=== PATIENT | male | born 1955 | race Caucasian/White ===

== ENCOUNTER 2016-12-23 09:21 | Emergency (ER) | payer OTHER ==
[~2016-12-23] VITALS: Ht 170.2 cm; Wt 70.0 kg
[~2016-12-23 09:21] MED LIST: LEXAPRO20 MG OR; PREVNAR 13 IM; ZOSTAVAX IM; ZYRTEC10 MG PO
[2016-12-23] MEDS ORDERED: AMITRIPTYLIN25 MG PO (10:26)
[2016-12-23] MEDS ORDERED: LEXAPRO10 MG PO (10:26)
[2016-12-23 10:38] VITALS: BP 120/73
== END 2016-12-23 10:42 | disposition home or self-care (01) | DRG 951 ==
LOC: ED 09:21
DX: Z20.811 Contact with and (suspected) exposure to meningococcus (principal)

== ENCOUNTER 2022-05-30 15:11 | Emergency (ER) | payer OTHER ==
[~2022-05-30] VITALS: Ht 170.2 cm; Wt 70.0 kg
[~2022-05-30 15:11] MED LIST changes: +AMITRIPTYLIN25 MG PO; +LEXAPRO10 MG PO
[2022-05-30 16:01] VITALS: BP 128/78
[2022-05-30 16:23] LABS: URINE BILIRUBIN - DIPSTICK NEGATIVE (NEGATIVE); URINE BLOOD DIPSTICK NEGATIVE (NEGATIVE); URINE COLOR YELLOW; URINE GLUCOSE - DIPSTICK NEGATIVE (NEGATIVE); URINE KETONE NEGATIVE (NEGATIVE); URINE LEUK ESTERASE NEGATIVE (NEGATIVE); URINE PROTEIN - DIPSTICK NEGATIVE (NEG-TRACE); URINE UROBILINOGEN - DIPSTICK 0.2 E.U./dL (0.2)
[2022-05-30 16:26] LABS: URINE NITRITE - DIPSTICK NEGATIVE (Negative)
[2022-05-30 16:28] VITALS: BP 128/78
[2022-05-30 16:41] LABS: BASO% 1.1 % (0-3); EOS% 2.6 % (0-8); HEMATOCRIT 41.8 % (39.0-50.0); HEMOGLOBIN 13.7 g/dl (14.0-18.0); IMMATURE GRANULOCYTES 0.2 % (0.0-5.0); LYMPH% 15.4 % (15-41); MEAN CELL VOLUME 92.1 fL CALC (80.0-100.0); MEAN CORPUSCULAR HGB 30.2 pG CALC (26.0-32.0); MEAN CORPUSCULAR HGB CONC 32.8 g/dL CAL (32.0-36.0); MONO% 8.5 % (2-13); NEUT# 3.38 thou/uL (1.82-7.42); NEUT% 72.2 % (42-76); RED BLOOD COUNT 4.54 mill/uL (4.70-6.10); RED CELL DISTRI WIDTH 12.2 % (11.5-15.5)
[2022-05-30 16:45] LABS: ALBUMIN 4.2 g/dL (3.2-5.0); ALKALINE PHOSPHATASE 65 u/l (38-126); ANION GAP 9 (6-22 (CALC)); BUN 14 mg/dL (8-23); BUN/CREATININE RATIO 15 (12-20 (CALC)); CARBON DIOXIDE 29 mmol/l (22-30); CHLORIDE 100 mmol/l (95-108); CREATININE 0.9 mg/dL (0.7-1.3); GFR FOR AFR.AMER. > 60 ML/MIN (>=60 (CALC)); GFR OTHER RACES > 60 ML/MIN (>=60 (CALC)); POTASSIUM 3.9 mmol/l (3.5-5.1); SGOT/AST 43 u/l (19-48); SODIUM 133 mmol/l (137-146); TOTAL PROTEIN 6.8 g/dL (6.3-8.2)
[2022-05-30 17:05] LABS: BILIRUBIN, TOTAL 0.7 mg/dL (0.2-1.3)
== END 2022-05-30 16:27 | disposition home or self-care (01) | DRG 914 ==
LOC: ED 15:11
PROVIDERS: Family Medicine
DX: S69.92XA Unspecified injury of left wrist, hand and finger(s), initial encounter (principal); W46.1XXA Contact with contaminated hypodermic needle, initial encounter; Y92.239 Unspecified place in hospital as the place of occurrence of the external cause; Z20.9 Contact with and (suspected) exposure to unspecified communicable disease